=== PATIENT | female | born 1950 | race Caucasian/White ===

== ENCOUNTER 2018-08-02 05:38 | Day surgery (SDC) | payer OTHER ==
[2018-08-02] MEDS ORDERED: PERCOCET 5-3251 EACH PO (12:22)
[2018-08-02] MEDS ORDERED: NEURONTIN800 MG PO (12:23)
[2018-08-02] MEDS ORDERED: POLY119PG PO (12:24)
[2018-08-02] MEDS ORDERED: SURFAK240 MG PO (12:25)
== END 2018-08-02 15:15 | disposition home or self-care (01) ==
LOC: CIR.AMB 05:38
DX: K42.0 Umbilical hernia with obstruction, without gangrene (principal); K43.0 Incisional hernia with obstruction, without gangrene

== ENCOUNTER 2020-09-15 10:25 | Emergency (ER) | payer OTHER ==
[~2020-09-15] VITALS: Ht 157.5 cm; Wt 78.9 kg
[~2020-09-15 10:25] MED LIST: NEURONTIN800 MG PO; PERCOCET 5-3251 EACH PO; POLY119PG PO; SURFAK240 MG PO
[2020-09-15] MEDS ORDERED: MEDROLPACK PO (13:30)
[2020-09-15] MEDS ORDERED: NORFLEX100MG PO (13:30)
[2020-09-15] MEDS ORDERED: KETO10TA2 PO (13:30)
== END 2020-09-15 13:38 | disposition home or self-care (01) ==
LOC: ER 10:25
DX: M54.5 Low back pain (principal)